=== PATIENT | male | born 1975 | race Caucasian/White ===

== ENCOUNTER 2017-05-09 11:02 | Emergency (ER) | payer MEDICAID ==
[2017-05-09 11:04] VITALS: BP 153/101; PULSE 76; RESP 20; TEMP 98.7; O2SAT 99
--- NOTE | 2017-05-09 11:37 | PD ---
Physical Exam Time Seen by Provider: 11:35 Narrative 41 y/o male hx of copd with sob/chest pressure for 2 weeks, wheezing, using at- home albuterol inhaler with minimal improvement.. Sent here by primary care physician. Vital signs reviewed. Seen at triage desk. Awaiting bed placement. Data Data Last Documented VS Vital Signs Date Time Temp Pulse Resp B/P Pulse Ox O2 Delivery O2 Flow Rate FiO2 05/09/17 11:04 98.7 76 20 153/101 99 Room Air [facility] Medical Record Reviewed: Yes Supervised Visit with TYLER: William Durbin May 09, 2017 11:37
[2017-05-09 12:26] LABS: AUTOMATED NEUTROPHIL # 5.5 TH/MM3 (1.8-7.7); BASOPHIL # 0.1 TH/MM3 (0-0.2); BASOPHIL % 1.3 % (0.0-2.0); EOSINOPHIL # 0.1 TH/MM3 (0-0.4); EOSINOPHIL % 0.8 % (0.0-4.0); HEMO FLAGS DIFF FINAL; LYMPH % 29.6 % (9.0-44.0); LYMPHOCYTE # 2.6 TH/MM3 (1.0-4.8); MEAN CELL VOLUME 94.8 FL (80.0-100.0); MEAN CORPUSCULAR HEMOGLOBIN 31.9 PG (27.0-34.0); MEAN CORPUSCULAR HGB CONC 33.6 % (32.0-36.0); NEUT % 63.3 % (16.0-70.0); PLATELET COUNT 220 TH/MM3 (150-450); RED BLOOD COUNT 4.75 MIL/MM3 (4.50-5.90); RED CELL DISTRIBUTION WIDTH 14.2 % (11.6-17.2); WHITE BLOOD COUNT 8.7 TH/MM3 (4.0-11.0)
--- NOTE | 2017-05-09 12:39 | RADRPT ---
EXAM DATE/TIME: 05/09/2017 12:20 [facility] COMPARISON: No previous studies available for comparison. INDICATIONS : Chest pains with tightness and pressure, dizziness, right and left arm numbness. MEDICAL HISTORY : None. SURGICAL HISTORY : None. ENCOUNTER: Initial ACUITY: 2 weeks PAIN SCORE: 10/10 LOCATION: Bilateral chest FINDINGS: PA and lateral views of the chest demonstrate the lungs to be symmetrically aerated without evidence of mass, infiltrate or effusion. The cardiomediastinal contours are unremarkable. Osseous structure s are intact. CONCLUSION: Normal examination. Sudarshan Moreno Jr., MD on May 09, 2017 at 12:35 Board Certified Radiologist. This report was verified electronically.
[2017-05-09 12:46] VITALS: BP 130/85; PULSE 64; RESP 23; TEMP 98.2; O2SAT 100
--- NOTE | 2017-05-09 12:57 | PD ---
HPI Chief Complaint: Respiratory Symptoms Time Seen by Provider: 12:54 Travel History International Travel<30 days: No Contact w/Intl Traveler<30days: No Traveled to known affect area: No History of Present Illness HPI Patient is a 41-year-old male presenting to emergency evaluation of shortness of breath and chest pressure. Symptoms have been ongoing for 2 weeks, patient has been using his albuterol inhaler with no relief of symptoms. Patient was sent here by his primary doctor for evaluation. He does report a productive cough, tobacco use. He denies any nausea, vomiting, abdominal pain, fevers, headaches. Patient is HIV positive, and reports compliance with antiviral therapy. PFSH Past Medical History COPD: Yes Medical other: Yes (HIV) Tetanus Vaccination: < 5 Years Past Surgical History Surgical History: No Previous Surgery Social History Alcohol Use: No Tobacco Use: Yes (2 PPD) Substance Use: Yes (MARIJUANA 3-4 DAYS AGO) Allergies-Medications (Allergen,Severity, Reaction): Coded Allergies: No Known Allergies (Unverified , 05/09/17) Reported Meds & Prescriptions Reported Meds & Active Scripts Active Reported Proair Hfa 8.5 GM Inh (Albuterol Sulfate) 90 Mcg/Act Aer 2 Puff INH Q4-6H PRN 108 mcg/actuation Sulfamethoxazole-Trimethoprim 800-160 Mg Tab 1 Tab PO DAILY Omeprazole 20 Mg Tab 20 Mg PO DAILY Bupropion HCl 100 Mg Tab 150 Mg PO BID Stribild (Rlkdrqntymlc-Vfkvidddtq-Yclvdvxbdwpi-Tenofvir) [id number] Mg Tab 1 Tab PO DAILY With food Review of Systems Except as stated in HPI: all other systems reviewed are Neg General / Constitutional: No: Fever, Chills Cardiovascular: Positive: Chest Pain or Discomfort, Dyspnea on exertion Respiratory: Positive: Shortness of Breath, Wheezing, Pleuritic Pain Gastrointestinal: No: Nausea, Vomiting, Diarrhea, Abdominal Pain Genitourinary: No: Dysuria Musculoskeletal: No: Myalgias Neurologic: No: Dizziness, Focal Abnormalities Physical Exam Narrative GENERAL: Well-developed, well-nourished, alert male. Appears uncomfortable, in no acute distress SKIN: Warm and dry. HEAD: Atraumatic. Normocephalic. EYES: Pupils equal and round. No scleral icterus. No injection or drainage. ENT: No nasal bleeding or discharge. Mucous membranes pink and moist. NECK: Trachea midline. No JVD. CARDIOVASCULAR: Regular rate and rhythm. RESPIRATORY: Tachypneic, expiratory wheezing throughout. GASTROINTESTINAL: Abdomen soft, non-tender, nondistended. Hepatic and splenic margins not palpable. MUSCULOSKELETAL: Extremities without clubbing, cyanosis, or edema. No obvious deformities. NEUROLOGICAL: Awake and alert. No obvious cranial nerve deficits. Motor grossly within normal limits. Five out of 5 muscle strength in the arms and legs. Normal speech. PSYCHIATRIC: Appropriate mood and affect; insight and judgment normal. Data Data Last Documented VS Vital Signs Date Time Temp Pulse Resp B/P Pulse Ox O2 Delivery O2 Flow Rate FiO2 05/09/17 13:07 100 21 05/09/17 12:46 98.2 64 23 130/85 Room Air Orders Complete Blood Count With Diff (05/09/17 11:37) Basic Metabolic Panel (Bmp) (05/09/17 11:37) Magnesium (Mg) (05/09/17 11:37) Ckmb (Isoenzyme) Profile (05/09/17 11:37) Troponin I (05/09/17 11:37) Electrocardiogram (05/09/17 11:37) Chest, Pa & Lat (05/09/17 11:37) Hepatic Functional Panel (05/09/17 12:50) Ct Thorax/ Chest W Iv Contrast (05/09/17 ) Magnesium (Mg) (05/09/17 12:52) Methylprednisolone So Succ Inj (Solumedr (05/09/17 13:00) Albuterol-Ipratropium Neb (Duoneb Neb) (05/09/17 13:00) Budesonide Neb (Pulmicort Respule Neb) (05/09/17 13:15) CKMB (05/09/17 12:10) CKMB% (05/09/17 12:10) Iohexol 350 Inj (Omnipaque 350 Inj) (05/09/17 15:11) Labs Laboratory Tests Test 05/09/17 12:10 White Blood Count 8.7 TH/MM3 Red Blood Count 4.75 MIL/MM3 Hemoglobin 15.1 GM/DL Hematocrit 45.0 % Mean Corpuscular Volume 94.8 FL Mean Corpuscular Hemoglobin 31.9 PG Mean Corpuscular Hemoglobin 33.6 % Concent Red Cell Distribution Width 14.2 % Platelet Count 220 TH/MM3 Mean Platelet Volume 8.2 FL Neutrophils (%) (Auto) 63.3 % Lymphocytes (%) (Auto) 29.6 % Monocytes (%) (Auto) 5.0 % Eosinophils (%) (Auto) 0.8 % Basophils (%) (Auto) 1.3 % Neutrophils # (Auto) 5.5 TH/MM3 Lymphocytes # (Auto) 2.6 TH/MM3 Monocytes # (Auto) 0.4 TH/MM3 Eosinophils # (Auto) 0.1 TH/MM3 Basophils # (Auto) 0.1 TH/MM3 CBC Comment DIFF FINAL Differential Comment Sodium Level 141 MEQ/L Potassium Level 3.6 MEQ/L Chloride Level 107 MEQ/L Carbon Dioxide Level 25.5 MEQ/L Anion Gap 9 MEQ/L Blood Urea Nitrogen 10 MG/DL Creatinine 1.04 MG/DL Estimat Glomerular Filtration 79 ML/MIN Rate Random Glucose 89 MG/DL Calcium Level 9.2 MG/DL Magnesium Level 2.0 MG/DL Total Bilirubin 0.6 MG/DL Direct Bilirubin 0.1 MG/DL Indirect Bilirubin 0.5 MG/DL Aspartate Amino Transf 23 U/L (AST/SGOT) Alanine Aminotransferase 31 U/L (ALT/SGPT) Alkaline Phosphatase 100 U/L Total Creatine Kinase 116 U/L Creatine Kinase MB LESS THAN 0.5 NG/ML Troponin I LESS THAN 0.02 NG/ML Total Protein 7.2 GM/DL Albumin 3.9 GM/DL MDM Medical Decision Making Medical Screen Exam Complete: Yes Emergency Medical Condition: Yes Interpretation(s) Last Impressions Chest X-Ray 05/09/17 1137 Signed Impressions: Service Date/Time: April 12:20 - CONCLUSION: Normal examination. Sudarshan Moreno Jr., MD Laboratory Tests Test 05/09/17 12:10 White Blood Count 8.7 TH/MM3 Red Blood Count 4.75 MIL/MM3 Hemoglobin 15.1 GM/DL Hematocrit 45.0 % Mean Corpuscular Volume 94.8 FL Mean Corpuscular Hemoglobin 31.9 PG Mean Corpuscular Hemoglobin 33.6 % Concent Red Cell Distribution Width 14.2 % Platelet Count 220 TH/MM3 Mean Platelet Volume 8.2 FL Neutrophils (%) (Auto) 63.3 % Lymphocytes (%) (Auto) 29.6 % Monocytes (%) (Auto) 5.0 % Eosinophils (%) (Auto) 0.8 % Basophils (%) (Auto) 1.3 % Neutrophils # (Auto) 5.5 TH/MM3 Lymphocytes # (Auto) 2.6 TH/MM3 Monocytes # (Auto) 0.4 TH/MM3 Eosinophils # (Auto) 0.1 TH/MM3 Basophils # (Auto) 0.1 TH/MM3 CBC Comment DIFF FINAL Differential Comment Sodium Level 141 MEQ/L Potassium Level 3.6 MEQ/L Chloride Level 107 MEQ/L Carbon Dioxide Level 25.5 MEQ/L Anion Gap 9 MEQ/L Blood Urea Nitrogen 10 MG/DL Creatinine 1.04 MG/DL Estimat Glomerular Filtration 79 ML/MIN Rate Random Glucose 89 MG/DL Calcium Level 9.2 MG/DL Magnesium Level 2.0 MG/DL Total Bilirubin 0.6 MG/DL Direct Bilirubin 0.1 MG/DL Indirect Bilirubin 0.5 MG/DL Aspartate Amino Transf 23 U/L (AST/SGOT) Alanine Aminotransferase 31 U/L (ALT/SGPT) Alkaline Phosphatase 100 U/L Total Creatine Kinase 116 U/L Creatine Kinase MB LESS THAN 0.5 NG/ML Troponin I LESS THAN 0.02 NG/ML Total Protein 7.2 GM/DL Albumin 3.9 GM/DL Vital Signs Date Time Temp Pulse Resp B/P Pulse Ox O2 Delivery O2 Flow Rate FiO2 05/09/17 12:46 98.2 64 23 130/85 100 Room Air 05/09/17 11:04 98.7 76 20 153/101 99 Room Air Differential Diagnosis Pneumonia versus bronchitis versus COPD exacerbation versus empyema versus other Narrative Course Patient is a 41-year-old male that presented with 2 weeks of chest pressure and shortness of breath. Patient has a history of HIV and COPD, he has been utilizing albuterol inhaler with no relief of symptoms. Patient's vital signs are stable, chest x-ray shows no acute disease. Patient is tachypneic with increased work of breathing. CBC is unremarkable, chemistries unremarkable, mag is 2.0, troponin is negative 1 set. EKG shows normal sinus rhythm. Diagnosis Primary Impression: COPD exacerbation Additional Impression: Abnormal CT scan of lung Referrals: Primary Care Physician 1 week Patient Instructions: COPD (Chronic Obstructive Pulmonary Disease) (ED), General Instructions Additional Instructions: Follow-up with your primary care provider CT scan of the lungs was abnormal, follow-up with your primary care provider for repeat testing Take medications as directed Avoid tobacco use Return to emergency department for any new or worsening symptoms Med/Other Pt SpecificInfo: Prescription(s) given Scripts Amoxicillin 875 Mg [id number] Mg PO BID 10 Days Ref 0 Prov:Rachele Reynoso 05/09/17 Budesonide Neb 0.5 Mg/2 Ml Neb0.5 Mg NEB Q12HR NEB #60 NEBULE Ref 0 Prov:Rachele Reynoso 05/09/17 Albuterol Neb 2.5 Mg/3 Ml Neb2.5 Mg NEB Q4HR NEB PRN (SHORTNESS OF BREATH) #60 NEBULE Ref 0 Prov:Rachele Reynoso 05/09/17 Nebulizer 1 Mis Mis #1 UNITS .ROUTE DIRECTED Ref 0 Prov:Rachele Reynoso 05/09/17 Disposition: 01 DISCHARGE HOME Condition: Stable Rachele Reynoso May 09, 2017 12:57
[2017-05-09] MEDS ORDERED: methylPREDNISolone SOD SUCC 125 MG/2 ML VIAL IVP ONE (13:00)
[2017-05-09] MEDS ORDERED: BUPR100T4 PO (13:03)
[2017-05-09] MEDS ORDERED: OMEP20TA PO (13:03)
[2017-05-09] MEDS ORDERED: ELVITAB PO (13:03)
[2017-05-09] MEDS ORDERED: ALBUAER3 INH (13:05)
[2017-05-09] MEDS ORDERED: SULF1TAB23 PO (13:05)
[2017-05-09] MEDS: RESP: ALBUTEROL 2.5 MG/IPRATROPIUM 0.5 MG NEB (SCH) INH ×2 (13:06→13:07)
[2017-05-09 13:07] VITALS: O2SAT 100
[2017-05-09 13:12] LABS: ANION GAP 9 MEQ/L (5-15); BICARBONATE 25.5 MEQ/L (21.0-32.0); BLOOD UREA NITROGEN 10 MG/DL (7-18); CHLORIDE 107 MEQ/L (98-107); GLOMERULAR FILTRATION RATE 79 ML/MIN (>89); MAGNESIUM 1.9 MG/DL (1.5-2.5); POTASSIUM 3.6 MEQ/L (3.5-5.1); SODIUM (NA) 141 MEQ/L (136-145)
[2017-05-09 13:13] LABS: CREATINE KINASE 116 U/L (39-308)
[2017-05-09 13:14] LABS: CKMB LESS THAN 0.5 NG/ML (0.5-3.6)
[2017-05-09] MEDS ORDERED: RESP: BUDESONIDE 0.5 MG/2 ML NEB NEB ONE (13:15)
[2017-05-09 13:56] LABS: INDIRECT BILIRUBIN 0.5 MG/DL (0.0-0.8); TOTAL BILIRUBIN ADULT 0.6 MG/DL (0.2-1.0)
[2017-05-09] MEDS ORDERED: IOHEXOL 350 MG/ML 10 ML VIAL (for RAD DIAG) IV ONE (15:11)
--- NOTE | 2017-05-09 15:11 | RADRPT ---
EXAM DATE/TIME: 05/09/2017 14:55 [facility] COMPARISON: CHEST PA & LAT, May 09, 2017, 12:20. INDICATIONS : Dyspnea,cough, wheezing IV CONTRAST: 71 cc Omnipaque 350 (iohexol) IV RADIATION DOSE: 4.33 CTDIvol (mGy) MEDICAL HISTORY : HIV. SURGICAL HISTORY : None. ENCOUNTER: Initial ACUITY: 2 weeks PAIN SCALE: 0/10 LOCATION: chest TECHNIQUE: Volumetric scanning of the chest was performed. Using automated exposure control and adjustment of t he mA and/or kV according to patient size, radiation dose was kept as low as reasonably achievable to obtain optimal diagnostic quality images. DICOM format image data is available electronically for review and comparison. Follow-up recommendations for incidentally detected pulmonary nodules are based at a minimum on nodul e size and patient risk factors according to Fleischner Society Guidelines. FINDINGS: There are 4 maybe 5 separate tiny nodules in right upper lung the largest one measures 1.2 cm in size without demonstrable calcifications. There is no pleural effusion. No appreciable pathological josé miguel opathy is seen within the mediastinum. CONCLUSION: Multiple right upper lobe nodule is indeterminate and may be chronic, however neoplas tic etiologies are difficult to exclude. If the patient does not have any known malignancies, repeat noncontrast chest CT is suggested in 6 months as a conservative follow up. Hayes Quigley MD on May 09, 2017 at 15:07 Board Certified Radiologist. This report was verified electronically.
[2017-05-09] MEDS ORDERED: AMOX875T PO (15:38)
[2017-05-09] MEDS ORDERED: NEBULIZER1 MI1 (15:38)
[2017-05-09] MEDS ORDERED: ALBU0.08 NEB (15:38)
[2017-05-09] MEDS ORDERED: BUDE0.5S NEB (15:38)
--- NOTE | 2017-05-11 11:15 | EKG ---
Date Performed: 05/09/2017 Time Performed: 12:02:08 PTAGE: 41 years EKG: Sinus rhythm NORMAL ECG NO PREVIOUS TRACING DOCTOR: Zhou Valadez Interpretating Date/Time 05/11/2017 11:07:26
== END 2017-05-09 16:27 | disposition home or self-care (01) ==
LOC: NEPC 11:02
DX: J44.1 Chronic obstructive pulmonary disease with (acute) exacerbation (principal); R91.8 Other nonspecific abnormal finding of lung field; F17.200 Nicotine dependence, unspecified, uncomplicated; Z21 Asymptomatic human immunodeficiency virus [HIV] infection status; Z79.899 Other long term (current) drug therapy
CPT/HCPCS: 71020; 71260; 80048; 80076; 82550; 82552; 83735; 84484; 85025; 93005; 94640; 94664; 96374; 99285; J2930; J7626; Q9967

== ENCOUNTER 2017-06-13 09:25 | Emergency (ER) | payer MEDICAID ==
[~2017-06-13] VITALS: Ht 172.7 cm; Wt 80.0 kg
[~2017-06-13 09:25] MED LIST: ALBU0.08 NEB; ALBUAER3 INH; AMOX875T PO; BUDE0.5S NEB; BUPR100T4 PO; ELVITAB PO; NEBULIZER1 MI1; OMEP20TA PO; SULF1TAB23 PO
[2017-06-13 09:26] VITALS: BP 133/81; PULSE 97; RESP 16; TEMP 98.3; O2SAT 98
[2017-06-13 10:00] VITALS: RESP 18; O2SAT 97
[2017-06-13 10:06] LABS: AUTOMATED NEUTROPHIL # 5.7 TH/MM3 (1.8-7.7); BASOPHIL # 0.1 TH/MM3 (0-0.2); BASOPHIL % 0.7 % (0.0-2.0); EOSINOPHIL # 0.2 TH/MM3 (0-0.4); EOSINOPHIL % 1.9 % (0.0-4.0); HEMATOCRIT 45.1 % (39.0-51.0); HEMO FLAGS DIFF FINAL; LYMPH % 28.2 % (9.0-44.0); LYMPHOCYTE # 2.5 TH/MM3 (1.0-4.8); MEAN CELL VOLUME 98.4 FL (80.0-100.0); MEAN CORPUSCULAR HEMOGLOBIN 33.5 PG (27.0-34.0); MEAN CORPUSCULAR HGB CONC 34.1 % (32.0-36.0); MONO % 5.7 % (0.0-8.0); NEUT % 63.5 % (16.0-70.0); PLATELET COUNT 219 TH/MM3 (150-450); RED BLOOD COUNT 4.58 MIL/MM3 (4.50-5.90); RED CELL DISTRIBUTION WIDTH 14.5 % (11.6-17.2); WHITE BLOOD COUNT 8.9 TH/MM3 (4.0-11.0)
[2017-06-13 10:15] LABS: BLOOD, URINE TRACE (NEG); COMMENT (UR) CULT NOT INDICATED; CULTURE IF INDICATED CULT NOT INDICATED; GLUCOSE,URINE NEG (NEG); KETONE, URINE NEG (NEG); NITRITE,URINE NEG (NEG); PH, URINE 5.5 (5.0-8.5); URINE COLOR YELLOW (YELLW/STRAW)
[2017-06-13 10:20] LABS: ALT (GPT) 19 U/L (12-78); ANION GAP 7 MEQ/L (5-15); AST (GOT) 15 U/L (15-37); BICARBONATE 24.4 MEQ/L (21.0-32.0); BLOOD UREA NITROGEN 15 MG/DL (7-18); CHLORIDE 102 MEQ/L (98-107); GLOMERULAR FILTRATION RATE 71 ML/MIN (>89); POTASSIUM 3.3 MEQ/L (3.5-5.1); SODIUM (NA) 133 MEQ/L (136-145)
[2017-06-13 10:22] LABS: ALKALINE PHOSPHATASE 105 U/L (45-117); TOTAL BILIRUBIN ADULT 0.4 MG/DL (0.2-1.0)
[2017-06-13] MEDS ORDERED: SODIUM CHLOR 0.9% 1000 ML INJ 1,000 ML IV SCH (10:43)
--- NOTE | 2017-06-13 10:43 | PD ---
HPI Chief Complaint: Abdominal Pain Time Seen by Provider: 10:20 Travel History International Travel<30 days: No Contact w/Intl Traveler<30days: No Traveled to known affect area: No History of Present Illness HPI Patient is a 41-year-old male who presents to emergency room complaints of right lower quadrant abdominal pain. Patient reports that his abdominal pain began yesterday afternoon and has been persistent. Patient reports that he is feeling nauseous and has vomited with his symptoms. Denies fevers, reports chills. Denies constipation or diarrhea. Reports that he did have a normal bowel movement today. Denies any recent travels or trips. PFSH Past Medical History COPD: Yes Diabetes: No Tetanus Vaccination: < 5 Years Influenza Vaccination: Yes Past Surgical History Surgical History: No Previous Surgery Social History Alcohol Use: No Tobacco Use: Yes (2 PPD) Substance Use: Yes (MARIJUANA 3-4 DAYS AGO) Allergies-Medications (Allergen,Severity, Reaction): Coded Allergies: No Known Allergies (Unverified , 06/13/17) Reported Meds & Prescriptions Reported Meds & Active Scripts Active Albuterol Neb (Albuterol Sulfate) 2.5 Mg/3 Ml Neb 2.5 Mg NEB Q4HR NEB PRN Nebulizer 1 Mis Mis 1 Units .ROUTE DIRECTED Reported Proair Hfa 8.5 GM Inh (Albuterol Sulfate) 90 Mcg/Act Aer 2 Puff INH Q4-6H PRN 108 mcg/actuation Sulfamethoxazole-Trimethoprim 800-160 Mg Tab 1 Tab PO DAILY Omeprazole 20 Mg Tab 20 Mg PO DAILY Bupropion HCl 100 Mg Tab 150 Mg PO BID Stribild (Qzpuyqfyhxzh-Vgktmaqkbw-Ttmxopmtwetg-Tenofvir) [id number] Mg Tab 1 Tab PO DAILY With food Review of Systems General / Constitutional: Positive: Chills, No: Fever Eyes: No: Visual changes HENT: No: Headaches Cardiovascular: No: Chest Pain or Discomfort Respiratory: No: Shortness of Breath Gastrointestinal: Positive: Nausea, Vomiting, Abdominal Pain Genitourinary: No: Dysuria Musculoskeletal: No: Pain Skin: No Rash Neurologic: No: Weakness Psychiatric: No: Depression Endocrine: No: Polydipsia Hematologic/Lymphatic: No: Easy Bruising Physical Exam Narrative GENERAL: Mild distress SKIN: Focused skin assessment warm/dry. HEAD: Atraumatic. Normocephalic. EYES: Pupils equal and round. No scleral icterus. No injection or drainage. ENT: No nasal bleeding or discharge. Mucous membranes pink and moist. NECK: Trachea midline. No JVD. CARDIOVASCULAR: Regular rate and rhythm. No murmur appreciated. RESPIRATORY: No accessory muscle use. Clear to auscultation. Breath sounds equal bilaterally. GASTROINTESTINAL: Abdomen soft, increased tenderness to right lower quadrant with no rebound or guarding on exam, nondistended. Hepatic and splenic margins not palpable. MUSCULOSKELETAL: No obvious deformities. No clubbing. No cyanosis. No edema. NEUROLOGICAL: Awake and alert. No obvious cranial nerve deficits. Motor grossly within normal limits. Normal speech. PSYCHIATRIC: Appropriate mood and affect; insight and judgment normal. Data Data Last Documented VS Vital Signs Date Time Temp Pulse Resp B/P Pulse Ox O2 Delivery O2 Flow Rate FiO2 06/13/17 10:02 18 06/13/17 10:00 97 Room Air 06/13/17 09:26 98.3 97 133/81 Orders Complete Blood Count With Diff (06/13/17 09:36) Comprehensive Metabolic Panel (06/13/17 09:36) Urinalysis - C+S If Indicated (06/13/17 09:36) Iv Access Insert/Monitor (06/13/17 09:36) Oxygen Administration (06/13/17 09:36) Oximetry (06/13/17 09:36) Lipase (06/13/17 09:36) Ct Abd/Pel W Iv Contrast(Rout) (06/13/17 10:31) Potassium Chloride (Kcl) (06/13/17 10:45) Morphine Inj (Morphine Inj) (06/13/17 10:45) Ondansetron Inj (Zofran Inj) (06/13/17 10:45) Sodium Chlor 0.9% 1000 Ml Inj (Ns 1000 M (06/13/17 10:43) Iohexol 350 Inj (Omnipaque 350 Inj) (06/13/17 11:20) Ciprofloxacin 400 Mg Premix (Cipro 400 M (06/13/17 12:00) Metronidazole 500 Mg Inj (Flagyl 500 Mg (06/13/17 12:00) Labs Laboratory Tests Test 06/13/17 06/13/17 09:40 09:45 White Blood Count 8.9 TH/MM3 Red Blood Count 4.58 MIL/MM3 Hemoglobin 15.4 GM/DL Hematocrit 45.1 % Mean Corpuscular Volume 98.4 FL Mean Corpuscular Hemoglobin 33.5 PG Mean Corpuscular Hemoglobin 34.1 % Concent Red Cell Distribution Width 14.5 % Platelet Count 219 TH/MM3 Mean Platelet Volume 7.9 FL Neutrophils (%) (Auto) 63.5 % Lymphocytes (%) (Auto) 28.2 % Monocytes (%) (Auto) 5.7 % Eosinophils (%) (Auto) 1.9 % Basophils (%) (Auto) 0.7 % Neutrophils # (Auto) 5.7 TH/MM3 Lymphocytes # (Auto) 2.5 TH/MM3 Monocytes # (Auto) 0.5 TH/MM3 Eosinophils # (Auto) 0.2 TH/MM3 Basophils # (Auto) 0.1 TH/MM3 CBC Comment DIFF FINAL Differential Comment Sodium Level 133 MEQ/L Potassium Level 3.3 MEQ/L Chloride Level 102 MEQ/L Carbon Dioxide Level 24.4 MEQ/L Anion Gap 7 MEQ/L Blood Urea Nitrogen 15 MG/DL Creatinine 1.14 MG/DL Estimat Glomerular Filtration 71 ML/MIN Rate Random Glucose 135 MG/DL Calcium Level 8.2 MG/DL Total Bilirubin 0.4 MG/DL Aspartate Amino Transf 15 U/L (AST/SGOT) Alanine Aminotransferase 19 U/L (ALT/SGPT) Alkaline Phosphatase 105 U/L Total Protein 7.3 GM/DL Albumin 3.8 GM/DL Lipase 143 U/L Urine Color YELLOW Urine Turbidity CLEAR Urine pH 5.5 Urine Specific [place] 1.013 Urine Protein TRACE mg/dL Urine Glucose (UA) NEG mg/dL Urine Ketones NEG mg/dL Urine Occult Blood TRACE Urine Nitrite NEG Urine Bilirubin NEG Urine Urobilinogen LESS THAN 2.0 MG/DL Urine Leukocyte Esterase NEG Urine RBC 2 /hpf Urine WBC 1 /hpf Microscopic Urinalysis Comment CULT NOT INDICATED MDM Medical Decision Making Medical Screen Exam Complete: Yes Emergency Medical Condition: Yes Interpretation(s) Vital Signs Date Time Temp Pulse Resp B/P Pulse Ox O2 Delivery O2 Flow Rate FiO2 06/13/17 10:02 18 06/13/17 10:00 18 97 Room Air 06/13/17 09:26 98.3 97 16 133/81 98 Differential Diagnosis Differential includes appendicitis, gastroenteritis, gastritis, UTI Narrative Course 41 year old male who presents to ER with c/o of right lower quadrant abdominal pain. Patient has been having abdominal pain since yesterday afternoon. Patient with right lower quadrant pain on evaluation, plan to obtain lab work including CT of the abdomen pelvis for further evaluation of symptoms. Will administer IV fluids and pain medications. Vital Signs Date Time Temp Pulse Resp B/P Pulse Ox O2 Delivery O2 Flow Rate FiO2 06/13/17 10:02 18 06/13/17 10:00 18 97 Room Air 06/13/17 09:26 98.3 97 16 133/81 98 Laboratory Tests Test 06/13/17 06/13/17 09:40 09:45 White Blood Count 8.9 TH/MM3 (4.0-11.0) Red Blood Count 4.58 MIL/MM3 (4.50-5.90) Hemoglobin 15.4 GM/DL (13.0-17.0) Hematocrit 45.1 % (39.0-51.0) Mean Corpuscular Volume 98.4 FL (80.0-100.0) Mean Corpuscular Hemoglobin 33.5 PG (27.0-34.0) Mean Corpuscular Hemoglobin 34.1 % Concent (32.0-36.0) Red Cell Distribution Width 14.5 % (11.6-17.2) Platelet Count 219 TH/MM3 (150-450) Mean Platelet Volume 7.9 FL (7.0-11.0) Neutrophils (%) (Auto) 63.5 % (16.0-70.0) Lymphocytes (%) (Auto) 28.2 % (9.0-44.0) Monocytes (%) (Auto) 5.7 % (0.0-8.0) Eosinophils (%) (Auto) 1.9 % (0.0-4.0) Basophils (%) (Auto) 0.7 % (0.0-2.0) Neutrophils # (Auto) 5.7 TH/MM3 (1.8-7.7) Lymphocytes # (Auto) 2.5 TH/MM3 (1.0-4.8) Monocytes # (Auto) 0.5 TH/MM3 (0-0.9) Eosinophils # (Auto) 0.2 TH/MM3 (0-0.4) Basophils # (Auto) 0.1 TH/MM3 (0-0.2) CBC Comment DIFF FINAL Differential Comment Sodium Level 133 MEQ/L (136-145) Potassium Level 3.3 MEQ/L (3.5-5.1) Chloride Level 102 MEQ/L (98-107) Carbon Dioxide Level 24.4 MEQ/L (21.0-32.0) Anion Gap 7 MEQ/L (5-15) Blood Urea Nitrogen 15 MG/DL (7-18) Creatinine 1.14 MG/DL (0.60-1.30) Estimat Glomerular Filtration 71 ML/MIN (>89) Rate Random Glucose 135 MG/DL (74-106) Calcium Level 8.2 MG/DL (8.5-10.1) Total Bilirubin 0.4 MG/DL (0.2-1.0) Aspartate Amino Transf 15 U/L (15-37) (AST/SGOT) Alanine Aminotransferase 19 U/L (12-78) (ALT/SGPT) Alkaline Phosphatase 105 U/L (45-117) Total Protein 7.3 GM/DL (6.4-8.2) Albumin 3.8 GM/DL (3.4-5.0) Lipase 143 U/L (73-393) Urine Color YELLOW (YELLW/STRAW) Urine Turbidity CLEAR (CLEAR) Urine pH 5.5 (5.0-8.5) Urine Specific [place] 1.013 (1.002-1.035) Urine Protein TRACE mg/dL (NEG-TRACE) Urine Glucose (UA) NEG mg/dL (NEG) Urine Ketones NEG mg/dL (NEG) Urine Occult Blood TRACE (NEG) Urine Nitrite NEG (NEG) Urine Bilirubin NEG (NEG) Urine Urobilinogen LESS THAN 2.0 MG/DL (LESS THAN 2.0) Urine Leukocyte Esterase NEG (NEG) Urine RBC 2 /hpf (0-3) Urine WBC 1 /hpf (0-5) Microscopic Urinalysis Comment CULT NOT INDICATED Last Impressions Abdomen/Pelvis CT 06/13/17 1031 Signed Impressions: Service Date/Time: May 11:11 - CONCLUSION: 1. Findings most characteristic of mild diverticulitis involving the sigmoid colon. 2. Normal appendix. Brice Tellez MD Patient feeling much better at this time, discuss findings including mild diverticulitis involving the sigmoid colon. Appendix appears normal. Plan to treat with antibiotics, patient will follow-up with oil plant operator as outpatient, he will return to emergency room as needed. A copy of his radiology report was given to him at discharge - he will bring this to his doctor's office for follow up Diagnosis Primary Impression: Diverticulitis Qualified Code: K57.92 - Diverticulitis of intestine without perforation or abscess without bleeding, unspecified part of intestinal tract Referrals: Robby Stone MD Patient Instructions: General Instructions, Narcotic given in the ED Additional Instructions: Please follow up with your primary care doctor Please follow up with your oil plant operator Please take all antibiotics as prescribed Return to ER if symptoms worsen or persist Return to ER as needed Please bring a copy of your studies to your doctor's office for follow up Med/Other Pt SpecificInfo: Prescription(s) given Scripts Metronidazole (Flagyl)500 Mg [id number] Mg PO TID 10 Days Ref 0 Prov:Lu Gutierrez DO 06/13/17 Ciprofloxacin (Cipro)500 Mg [id number] Mg PO BID 10 Days Ref 0 Prov:Lu Gutierrez DO 06/13/17 Disposition: 01 DISCHARGE HOME Condition: Stable Lu Gutierrez DO Jun 13, 2017 10:43
[2017-06-13] MEDS ORDERED: POTASSIUM CHLORIDE 10 MEQ CONTROLLED RELEASE TAB PO ONE (10:45)
[2017-06-13] MEDS ORDERED: MORPHINE SULFATE 4 MG/ML INJ IV PUSH ONE (10:45)
[2017-06-13] MEDS ORDERED: ONDANSETRON HCL 4 MG/2 ML VIAL IVP ONE (10:45)
[2017-06-13] MEDS ORDERED: IOHEXOL 350 MG/ML 10 ML VIAL (for RAD DIAG) IV ONE (11:20)
--- NOTE | 2017-06-13 11:41 | RADRPT ---
EXAM DATE/TIME: 06/13/2017 11:11 [facility] COMPARISON: No previous studies available for comparison. INDICATIONS : Right lower abdomen pain starting yesterday with nausea and vomiting. IV CONTRAST: 93 cc Omnipaque 350 (iohexol) IV ORAL CONTRAST: No oral contrast ingested. RADIATION DOSE: 9.67 CTDIvol (mGy) MEDICAL HISTORY : Chronic obstructive pulmonary disease. SURGICAL HISTORY : None. ENCOUNTER: Initial ACUITY: 1 day PAIN SCALE: 10/10 LOCATION: Right Abdomen TECHNIQUE: Volumetric scanning of the abdomen and pelvis was performed. Using automated exposure control and ad justment of the mA and/or kV according to patient size, radiation dose was kept as low as reasonably achievable to obtain optimal diagnostic quality images. DICOM format image data is available electro nically for review and comparison. FINDINGS: LOWER LUNGS: The visualized lower lungs are clear. LIVER: Homogeneous density without lesion. There is no dilation of the biliary tree. No calcified gallston es. There is mild hepatic steatosis is SPLEEN: Normal size without lesion. PANCREAS: Within normal limits. KIDNEYS: Normal in size and shape. There is no mass, stone or hydronephrosis. ADRENAL GLANDS: Within normal limits. VASCULAR: There is no aortic aneurysm. BOWEL/MESENTERY: There are multiple diverticuli present greatest in the sigmoid colon. There is mild inflammatory hunter ge along the left side of the mid sigmoid colon with slight wispy density in the adjacent mesentery. There is no fluid collection. There is no free intraperitoneal air or fluid. There is a normal append ix. ABDOMINAL WALL: Within normal limits. RETROPERITONEUM: There is no lymphadenopathy. BLADDER: No wall thickening or mass. REPRODUCTIVE: Within normal limits. INGUINAL: There is no lymphadenopathy or hernia. MUSCULOSKELETAL: Within normal limits for patient age. CONCLUSION: 1. Findings most characteristic of mild diverticulitis involving the sigmoid colon. 2. Normal appendix. Brice Tellez MD on June 13, 2017 at 11:36 Board Certified Radiologist. This report was verified electronically.
[2017-06-13] MEDS ORDERED: metroNIDAZOLE 500 MG INJ 100 ML IV ONE (12:00)
[2017-06-13] MEDS ORDERED: CIPROFLOXACIN 400 MG PREMIX 200 ML IV ONE (12:00)
[2017-06-13 12:01] VITALS: RESP 18
[2017-06-13] MEDS ORDERED: METR-1 PO (12:01)
[2017-06-13] MEDS ORDERED: CIPR-9 PO (12:01)
== END 2017-06-13 14:29 | disposition home or self-care (01) ==
LOC: NEPD 09:25
DX: K57.92 Diverticulitis of intestine, part unspecified, without perforation or abscess without bleeding (principal); F17.200 Nicotine dependence, unspecified, uncomplicated; J44.9 Chronic obstructive pulmonary disease, unspecified; Z79.51 Long term (current) use of inhaled steroids; Z79.899 Other long term (current) drug therapy
CPT/HCPCS: 74177; 80053; 81001; 83690; 85025; 96361; 96365; 96368; 96375; 99285; J0744; J2270; J2405; J7030; Q9967